=== PATIENT | female | born 1940 | race Caucasian/White ===

== ENCOUNTER 2017-01-23 00:55 | Emergency (ER) | payer OTHER ==
[2017-01-23 00:56] VITALS: O2SAT 98
[2017-01-23 01:03] VITALS: BP 133/70; PULSE 109; RESP 18; TEMP 97.9
== END 2017-01-23 01:50 | disposition home or self-care (01) | DRG 395 ==
LOC: ED 00:55
DX: K64.4 Residual hemorrhoidal skin tags (principal)
CPT/HCPCS: 99282